=== PATIENT | male | born 1945 | race Caucasian/White ===

== ENCOUNTER → 2016-06-02 | Outpatient (CLI) | payer MEDICARE ==
--- NOTE | 2016-06-03 09:49 | XR ---
EXAMINATION TYPE: XR abdomen 2V DATE OF EXAM: 06/02/2016 12:52 PM COMPARISON: 12/01/2012 HISTORY: Nausea and generalized abdominal pain FINDINGS: The osseous structures are intact. The bowel gas pattern is nonspecific. Previous surgery seen in th e right upper quadrant. Hypertrophic and degenerative change of the spine noted. Diffuse osteopenia n oted. Arthropathy of the hip joints seen. IMPRESSION: 1. Nonspecific abdomen.
== END | disposition home or self-care (01) ==
LOC: RADXRYALE 11:52
PROVIDERS: ATTEND Physician Assistant Medical
DX: R10.84 Generalized abdominal pain (principal); R11.0 Nausea; Z90.49 Acquired absence of other specified parts of digestive tract
CPT/HCPCS: 74020

== ENCOUNTER → 2019-12-29 | Outpatient (CLI) | payer MEDICARE | END | disposition home or self-care (01) | LOC: RADMRIMAIN 17:39 | PROVIDERS: ATTEND Family Medicine | DX: Z53.9 Procedure and treatment not carried out, unspecified reason (principal) ==

== ENCOUNTER → 2020-03-06 | Outpatient (CLI) | payer MEDICARE ==
[~2020-03-06] MED LIST: IODINE/POTASS IOD (LUGOLS) BOTTLE TOPICAL ONE
--- NOTE | 2020-03-07 10:18 | NM ---
EXAMINATION TYPE: NM DatScan Brain SPECT DATE OF EXAM: 03/06/2020 COMPARISON: NONE HISTORY: Essential tremor TECHNIQUE: 10 drops of Lugol's solution was administered 1 hour prior to injection as a thyroid bloc francine agent. After the administration of 4.47 mCi I-123 Ioflupane DaTscan. Images obtained 3 hours p ost injection. SPECT images of the brain were acquired with axial and coronal reconstructions. FINDINGS: There is asymmetric uptake along the striata. Decreased uptake noted on the left as compared to the r ight. Uptake along the striata is not comma-shaped. IMPRESSION: Abnormal GUILLERMO scan
== END | disposition home or self-care (01) ==
LOC: RADNMMAIN 10:38
PROVIDERS: ATTEND Psychiatry & Neurology Neurology
DX: G25.0 Essential tremor (principal)
CPT/HCPCS: 78803; A9584

== ENCOUNTER → 2022-12-28 | Outpatient (CLI) | payer MEDICARE ==
--- NOTE | 2022-12-28 10:34 | US ---
EXAMINATION TYPE: US kidneys/renal and bladder DATE OF EXAM: 12/28/2022 COMPARISON: US 2012 CLINICAL INDICATION: Male, 77 years old with history of R79.9 ABNORMAL FINDING OF BLOOD CHEMISTRY, UN SPECI; Abnormal finding of blood chemistry EXAM MEASUREMENTS: Right Kidney: 10.7 x 5.8 x 5.9 cm Left Kidney: 11.3 x 5.4 x 5.7 cm Right Kidney: Anechoic area seen lower pole: 2.0 x 1.2 x 1.1 cm. Hyperechoic focus seen lower pole: 0.4 x 0.6 x 0.2 cm. Left Kidney: No hydronephrosis or masses seen Bladder: Anechoic Bilateral Jets seen: Yes IMPRESSION: 1. Small medullary cyst inferior pole right kidney. 2. Nonobstructing cortical renal calcification.
== END | disposition home or self-care (01) ==
LOC: RADUSWWP 09:07
PROVIDERS: ATTEND Family Medicine
DX: N28.89 Other specified disorders of kidney and ureter (principal); N28.1 Cyst of kidney, acquired; R79.9 Abnormal finding of blood chemistry, unspecified
CPT/HCPCS: 76770

== ENCOUNTER 2024-07-06 10:01 | Emergency (ER) | payer MEDICARE ==
--- NOTE | 2024-07-06 10:38 | ED ---
Weakness HPI - General Source: patient, family, RN notes reviewed Mode of arrival: wheelchair Limitations: no limitations <Stephy Coon - Last Filed: 07/06/24 10:37> - General Source: patient, family, RN notes reviewed Mode of arrival: wheelchair Limitations: no limitations <Ziggy Barahona - Last Filed: 07/06/24 13:13> - General Chief complaint: Weakness Stated complaint: fall,weakness Time Seen by Provider: 07/06/24 10:37 - History of Present Illness Initial comments: Quick note: 78-year-old male presented to the ER for evaluation of weakness. Son providing most of HPI. He reports patient has been extremely weak having difficulty with walking and standing. Son reports yesterday patient slipped out of bed. No head injury. He also reports bilateral lower extremity edema to the point where he cannot place patient's shoes. Patient denies any current pain. (Stephy Coon) Patient is an 78-year-old male present to the emergency department with concerns with generalized weakness. Onset of symptoms was yesterday. Patient did have a fall, sliding to the ground. No injury. Patient had another similar incident also no injury. Patient has minimal cough. No fever. No confusion. No history of similar symptoms previously. Patient in general feels generally w eak. Majority of history comes from son as he is a superior historian. Patient denies any significant complaints. Patient denies any injuries. (Ziggy Barahona) - Related Data Home Medications Medication Instructions Recorded Confirmed Albuterol Sulfate [Proair Hfa] 1 - 2 puff INHALATION BID 06/06/15 05/11/18 Aspirin [Adult Low Dose Aspirin EC] 81 mg PO DAILY 06/06/15 05/11/18 Atorvastatin [Lipitor] 10 mg PO Q48H 06/06/15 05/11/18 Multivitamins, Thera [Multivitamin] 1 tab PO DAILY 06/06/15 05/11/18 Budesonide-Formot 160-4.5 Mcg 1 puff INHALATION DAILY 05/11/18 05/11/18 [Symbicort 160-4.5 Mcg Inhaler] Vit D3/Folic Acid/B2/B6/B12 1 tab PO DAILY 05/11/18 05/11/18 [Folgard Tablet] Previous Rx's Medication Instructions Recorded Nirmatrelvir/Ritonavir [Paxlovid 3 each PO BID #30 each 07/06/24 300-100 mg Dose Pack] Allergies Allergy/AdvReac Type Severity Reaction Status Date / Time Sulfa (Sulfonamide Allergy red skin Verified 07/06/24 10:10 Antibiotics) all over Review of Systems ROS Other: All systems not noted in ROS Statement are negative. <Stephy Coon - Last Filed: 07/06/24 10:37> ROS Other: All systems not noted in ROS Statement are negative. Constitutional: Denies: fever, chills Eyes: Denies: eye pain Respiratory: Denies: dyspnea Cardiovascular: Denies: chest pain Gastrointestinal: Denies: abdominal pain Musculoskeletal: Denies: back pain Neurological: Reports: as per HPI. Denies: headache <Ziggy Barahona - Last Filed: 07/06/24 13:13> ROS Statement: Those systems with pertinent positive or pertinent negative responses have been documented in the HPI. Past Medical History Past Medical History: Asthma, Diabetes Mellitus, Hyperlipidemia, Osteoarthritis (OA) History of Any Multi-Drug Resistant Organisms: None Reported Past Surgical History: Cholecystectomy, Tonsillectomy Past Anesthesia/Blood Transfusion Reactions: Motion Sickness Past Psychological History: No Psychological Hx Reported Smoking Status: Former smoker Past Alcohol Use History: None Reported Past Drug Use History: None Reported - Past Family History Brother(s) Family Medical History: Cancer <Stephy Coon - Last Filed: 07/06/24 10:37> General Exam Limitations: no limitations <Stephy Coon - Last Filed: 07/06/24 10:37> Limitations: no limitations General appearance: alert, in no apparent distress Head exam: Present: atraumatic Eye exam: Present: normal appearance Neck exam: Present: normal inspection. Absent: tenderness Respiratory exam: Present: normal lung sounds bilaterally Cardiovascular Exam: Present: regular rate, normal rhythm GI/Abdominal exam: Present: soft. Absent: tenderness Extremities exam: Present: normal inspection, full ROM. Absent: tenderness Neurological exam: Present: alert, CN II-XII intact. Absent: motor sensory de ficit Psychiatric exam: Present: flat affect Skin exam: Present: normal color <Ziggy Barahona - Last Filed: 07/06/24 13:13> - General Exam Comments Initial Comments: Visual Physical Exam Vital signs reviewed General: Well-appearing, nontoxic, no acute distress. Head: Normocephalic, atraumatic Eyes: PERRLA, EOMI ENT: Airway patent Chest: Nonlabored breathing Skin: No visual rash, normal skin tone Neuro: Alert and oriented 3 Musculoskeletal: No gross abnormalities edema bilateral lower extremities (Stephy Coon) Course Vital Signs 07/06/24 10:07 Temperature 97.8 F Pulse Rate 62 Respiratory 18 Rate Blood Pressure 120/73 O2 Sat by Pulse 99 Oximetry Medical Decision Making <Stephy Coon - Last Filed: 07/06/24 10:37> - Lab Data Result diagrams: 07/06/24 10:22 07/06/24 10:22 <Ziggy Barahona - Last Filed: 07/06/24 13:13> - Medical Decision Making I performed the quick note portion of this chart. Electronically signed by Stephy Coon PA-C (Stephy Coon) Was pt. sent in by a medical professional or institution ([facility], [employer], urgent care, hospital, or penitentiary...) When possible be specific @ -No Did you speak to anyone other than the patient for history (EMS, parent, family, police, friend...)? What history was obtained from this source @ -Son provides majority of history as he is a who. Superior historian to the patient Did you review nursing and triage notes (agree or disagree)? Why? @ -I reviewed and agree with nursing and triage notes Were old charts reviewed (outside hosp., previous admission, EMS record, old EKG, old radiological studies, urgent care reports/EKG's, penitentiary records)? Report findings @ -No old charts were reviewed Differential Diagnosis (chest pain, altered mental status, abdominal pain women, abdominal pain men, vaginal bleeding, weakness, fever, dyspnea, syncope, headache, dizziness, GI bleed, back pain, seizure, CVA, palpatations, mental health, musculoskeletal)? @ -Differential Weakness: Hypoglycemia, shock, sepsis, hyponatremia, anemia, infection, FL, ETOH, adverse medicine reaction, overdose, stroke, this is not meant to be an all-inclusive list. EKG interpreted by me (3pts min.). @ -As above X-rays interpreted by me (1pt min.). @ -Chest x-ray shows no acute process CT interpreted by me (1pt min.). @ -None done U/S interpreted by me (1pt. min.). @ -None done What testing was considered but not performed or refused? (CT, X-rays, U/S, l abs)? Why? @ -None What meds were considered but not given or refused? Why? @ -None Did you discuss the management of the patient with other professionals (professionals i.e. Dr., PA, BARREL FINISHER, lab, RT, psych nurse, social services designee, computer repair instructor, teacher, correction officer reformatory, wrapper caser)? Give summary @ -No Was smoking cessation discussed for >3mins.? @ -No Was critical care preformed (if so, how long)? @ -No Were there social determinants of health that impacted care today? How? (Homelessness, low income, unemployed, alcoholism, drug addiction, transportation, low edu. Level, literacy, decrease access to med. care, alf, rehab)? @ -No Was there de-escalation of care discussed even if they declined (Discuss DNR or withdrawal of care, Hospice)? DNR status @ - What co-morbidities impacted this encounter? (DM, HTN, Smoking, COPD, CAD, Cancer, CVA, ARF, Chemo, Hep., AIDS, mental health diagnosis, sleep apnea, morbid obesity)? @ -History of Parkinson's Was patient admitted / discharged? Hospital course, mention meds given and route, prescriptions, significant lab abnormalities, going to OR and other pertinent info. @ -Patient presents with generalized weakness. Evaluation positive for COVID-19. Interactions reviewed, patient will be prescribed Paxlovid and discharged. Patient and family updated and comfortable with this. Undiagnosed new problem with uncertain prognosis? @ -No Drug Therapy requiring intensive monitoring for toxicity (Heparin, Nitro, Insulin, Cardizem)? @ -No Were any procedures done? @ -No Diagnosis/symptom? @ -COVID-19 infection Acute, or Chronic, or Acute on Chronic? @ -Acute Uncomplicated (without systemic symptoms) or Complicated (systemic symptoms)? @ -Default Side effects of treatment? @ -No Exacerbation, Progression, or Severe Exacerbation? @ -No Poses a threat to life or bodily function? How? (Chest pain, USA, FL, pneumonia, PE, COPD, DKA, ARF, appy, cholecystitis, CVA, Diverticulitis, Homicidal, Suicidal, threat to staff... and all critical care pts) @ -No (Ziggy Barahona) - Lab Data Lab Results 07/06/24 07/06/24 07/06/24 Range/Units 10:22 10:22 10:22 WBC 4.8 (3.8-10.6) k/uL RBC 4.45 (4.30-5.90) m/uL Hgb 13.1 (13.0-17.5) gm/dL Hct 41.0 (39.0-53.0) % MCV 92.1 (80.0-100.0) fL MCH 29.4 (25.0-35.0) pg MCHC 32.0 (31.0-37.0) g/dL RDW 13.6 (11.5-15.5) % Plt Count 117 L (150-450) k/uL MPV 7.6 Neutrophils % 66 % Lymphocytes % 18 % Monocytes % 12 % Eosinophils % 1 % Basophils % 0 % Neutrophils # 3.1 (1.3-7.7) k/uL Lymphocytes # 0.9 L (1.0-4.8) k/uL Monocytes # 0.6 (0-1.0) k/uL Eosinophils # 0.0 (0-0.7) k/uL Basophils # 0.0 (0-0.2) k/uL PT 11.1 (10.0-12.5) sec INR 1.0 (<1.2) APTT 24.2 (22.0-30.0) sec Sodium 135 L (137-145) mmol/L Potassium 4.3 (3.5-5.1) mmol/L Chloride 104 (98-107) mmol/L Carbon Dioxide 22 (22-30) mmol/L Anion Gap 9 mmol/L BUN 26 H (9-20) mg/dL Creatinine 0.87 (0.66-1.25) mg/dL Est GFR (CKD-EPI)AfAm >90 (>60 ml/min/1.73 sqM) Est GFR (CKD-EPI)NonAf 82 (>60 ml/min/1.73 sqM) Glucose 128 H (74-99) mg/dL Plasma Lactic Acid Rober (0.7-2.0) mmol/L Calcium 8.7 (8.4-10.2) mg/dL Magnesium 2.0 (1.6-2.3) mg/dL Total Bilirubin 1.0 (0.2-1.3) mg/dL AST 140 H (17-59) U/L ALT 10 (4-49) U/L Alkaline Phosphatase 48 (38-126) U/L Troponin I (0.000-0.034) ng/mL NT-Pro-B Natriuret Pep 129 pg/mL Total Protein 6.6 (6.3-8.2) g/dL Albumin 3.7 (3.5-5.0) g/dL Influenza Type A (PCR) (Not Detectd) Influenza Type B (PCR) (Not Detectd) RSV (PCR) (Not Detectd) SARS-CoV-2 (PCR) (Not Detectd) 07/06/24 07/06/24 07/06/24 Range/Units 10:22 10:22 11:35 WBC (3.8-10.6) k/uL RBC (4.30-5.90) m/uL Hgb (13.0-17.5) gm/dL Hct (39.0-53.0) % MCV (80.0-100.0) fL MCH (25.0-35.0) pg MCHC (31.0-37.0) g/dL RDW (11.5-15.5) % Plt Count (150-450) k/uL MPV Neutrophils % % Lymphocytes % % Monocytes % % Eosinophils % % Basophils % % Neutrophils # (1.3-7.7) k/uL Lymphocytes # (1.0-4.8) k/uL Monocytes # (0-1.0) k/uL Eosinophils # (0-0.7) k/uL Basophils # (0-0.2) k/uL PT (10.0-12.5) sec INR (<1.2) APTT (22.0-30.0) sec Sodium (137-145) mmol/L Potassium (3.5-5.1) mmol/L Chloride (98-107) mmol/L Carbon Dioxide (22-30) mmol/L Anion Gap mmol/L BUN (9-20) mg/dL Creatinine (0.66-1.25) mg/dL Est GFR (CKD-EPI)AfAm (>60 ml/min/1.73 sqM) Est GFR (CKD-EPI)NonAf (>60 ml/min/1.73 sqM) Glucose (74-99) mg/dL Plasma Lactic Acid Rober 1.1 (0.7-2.0) mmol/L Calcium (8.4-10.2) mg/dL Magnesium (1.6-2.3) mg/dL Total Bilirubin (0.2-1.3) mg/dL AST (17-59) U/L ALT (4-49) U/L Alkaline Phosphatase (38-126) U/L Troponin I <0.012 (0.000-0.034) ng/mL NT-Pro-B Natriuret Pep pg/mL Total Protein (6.3-8.2) g/dL Albumin (3.5-5.0) g/dL Influenza Type A (PCR) Not Detected (Not Detectd) Influenza Type B (PCR) Not Detected (Not Detectd) RSV (PCR) Not Detected (Not Detectd) SARS-CoV-2 (PCR) Detected A (Not Detectd) Disposition <Stephy Coon - Last Filed: 07/06/24 10:37> Is patient prescribed a controlled substance at d/c from ED?: No Time of Disposition: 13:12 <Ziggy Barahona - Last Filed: 07/06/24 13:13> Clinical Impression: COVID-19 Disposition: HOME SELF-CARE Condition: Stable Instructions (If sedation given, give patient instructions): COVID-19 (Coronavirus Disease 2019) (ED) Additional Instructions: Prescription sent to pharmacy. Please do follow-up with primary care physician in the next day or 2 for recheck. Return for increased weakness, difficulty breathing, not tolerating oral intake, worsening symptoms or other concerns. Prescriptions: Nirmatrelvir/Ritonavir [Paxlovid 300-100 mg Dose Pack] 3 each PO BID #30 each Referrals: Oc Mesa DO [Primary Care Provider] - 1-2 days
[2024-07-06 10:39] LABS: Basophils % (A) 0 %; Eosinophils % (A) 1 %; HGB 13.1 gm/dL (13.0-17.5); Lymphocytes # (A) 0.9 k/uL (1.0-4.8); Lymphocytes % (A) 18 %; MCH 29.4 pg (25.0-35.0); MCV 92.1 fL (80.0-100.0); Mean Platelet Volume 7.6; Monocytes # (A) 0.6 k/uL (0-1.0); Monocytes % (A) 12 %; Neutrophils # (A) 3.1 k/uL (1.3-7.7); Neutrophils % (A) 66 %; Platelet Count 117 k/uL (150-450); RBC 4.45 m/uL (4.30-5.90); RDW 13.6 % (11.5-15.5); WBC 4.8 k/uL (3.8-10.6)
[2024-07-06 10:53] LABS: ALT 10 U/L (4-49); African American GFR (CKD) >90 (>60 ml/min/1.73 sqM); Anion Gap 9 mmol/L; Blood Urea Nitrogen 26 mg/dL (9-20); Calcium 8.7 mg/dL (8.4-10.2); Carbon Dioxide 22 mmol/L (22-30); Chloride 104 mmol/L (98-107); Glucose 128 mg/dL (74-99); Non-African American GFR(CKD) 82 (>60 ml/min/1.73 sqM); Sodium 135 mmol/L (137-145)
[2024-07-06 10:56] LABS: AST 140 U/L (17-59); Albumin 3.7 g/dL (3.5-5.0); Alkaline Phosphatase 48 U/L (38-126); Potassium 4.3 mmol/L (3.5-5.1); Total Protein 6.6 g/dL (6.3-8.2)
--- NOTE | 2024-07-06 10:58 | XR ---
EXAMINATION TYPE: XR chest 2V DATE OF EXAM: 07/06/2024 10:52 AM COMPARISON: CT 2013 CLINICAL INDICATION: Male, 78 years old with history of Weakness, TECHNIQUE: Frontal and lateral views of the chest are obtained. FINDINGS: There is no focal air space opacity, pleural effusion, or pneumothorax seen. The cardiac silhouette size is within normal limits. Scoliotic curvature is present. IMPRESSION: No acute cardiopulmonary process. [facility], , 07/06/2024 10:55 AM
[2024-07-06 11:01] LABS: NT-Pro-B-Type Natriuretic Pept 129 pg/mL
[2024-07-06 11:02] LABS: Partial Thromboplastin Time 24.2 sec (22.0-30.0); Prothrombin Time 11.1 sec (10.0-12.5)
[2024-07-06 12:20] LABS: Influenza A Not Detected (Not Detectd); Influenza B Not Detected (Not Detectd); RSV Not Detected (Not Detectd)
[2024-07-06 13:30] VITALS: RESP 16
[2024-07-06 13:32] VITALS: BP 146/70; PULSE 65; TEMP 98.8
== END 2024-07-06 13:30 | disposition home or self-care (01) ==
LOC: EC 10:01
DX: U07.1 COVID-19 (principal); Z86.69 Personal history of other diseases of the nervous system and sense organs; Z87.891 Personal history of nicotine dependence; Z88.2 Allergy status to sulfonamides; W06.XXXA Fall from bed, initial encounter
CPT/HCPCS: 36415; 71046; 80053; 83605; 83735; 83880; 84484; 85025; 85610; 85730; 87636; 93005; 99285

== ENCOUNTER → 2024-08-29 | Outpatient (CLI) | payer MEDICARE ==
--- NOTE | 2024-08-30 11:23 | CA ---
Transthoracic Echo Report Name: Scott Ellis Age: 78 Gender: M : 1945 Exam Date: 08/29/2024 14:06 Exam Location: [place] [facility] Ht (in): 70 Wt (lb): 195 Ordering Physician: Oc Mesa DO Attending/Referring Phys: Warping Machine Operator Michelle Tomlinson RDCS Procedure CPT: Indications: R60.9 DIASTOLIC CONGESTIVE HEART R60.9 EDEMA Cardiac Hx: Technical Quality: Good Contrast 1: Total Dose (mL): Contrast 2: Total Dose (mL): MEASUREMENTS (Male / Female) Normal Values 2D ECHO LV Diastolic Diameter PLAX 5.1 cm 4.2 - 5.9 / 3.9 - 5.3 cm LV Systolic Diameter PLAX 3.2 cm IVS Diastolic Thickness 1.2 cm 0.6 - 1.0 / 0.6 - 0.9 cm LVPW Diastolic Thickness 1.2 cm 0.6 - 1.0 / 0.6 - 0.9 cm LV Relative Wall Thickness 0.5 RV Internal Dim ED PLAX 3.7 cm LA Systolic Diameter LX 4.1 cm 3.0 - 4.0 / 2.7 - 3.8 cm LV Diastolic Volume MOD BP 103.4 cm??? 67 - 155 / 56 - 104 cm??? LV Systolic Volume MOD BP 40.8 cm??? - 58 / 19 - 49 cm??? LV Ejection Fraction MOD BP 60.6 % >= 55 % LV Cardiac Index MOD BP 2110.4 cm???/min???m??? LV Diastolic Volume MOD 4C 117.4 cm??? LV Systolic Volume MOD 4C 47.3 cm??? LV Ejection Fraction MOD 4C 59.7 % LV Cardiac Index MOD 4C 2362.2 cm???/min???m??? LV Diastolic Length 4C 7.6 cm LV Systolic Length 4C 6.7 cm LV Diastolic Volume MOD 2C 92.5 cm??? LV Systolic Volume MOD 2C 31.3 cm??? LV Ejection Fraction MOD 2C 66.1 % LV Cardiac Index MOD 2C 2061.5 cm???/min???m??? LV Diastolic Length 2C 7.6 cm LV Systolic Length 2C 5.8 cm LA Volume 78.6 cm??? - 58 / 22 - 52 cm??? LA Volume Index 37.3 cm???/m??? 16 - 28 cm???/m??? M-MODE Aortic Root Diameter MM 3.1 cm AV Cusp Separation MM 2.1 cm DOPPLER AV Peak Velocity 150.9 cm/s AV Peak Gradient 9.1 mmHg AI Peak Velocity 369.3 cm/s AI Peak Gradient 54.6 mmHg AI Pressure Half Time 982.2 ms MV Area PHT 3.6 cm??? Mitral E Point Velocity 75.6 cm/s Mitral A Point Velocity 70.2 cm/s Mitral E to A Ratio 1.1 MV Deceleration Time 212.9 ms TR Peak Velocity 260.4 cm/s TR Peak Gradient 27.1 mmHg Right Ventricular Systolic Press 32.1 mmHg FINDINGS Left Ventricle Left ventricular ejection fraction is estimated at 55-60 %. Left ventricular cavity size normal. Normal left ventricular systolic function with no obvious regional wall motion abnormalities. Mildly increased left ventricular wall thickness. Right Ventricle Mild right ventricular dilatation. Right ventricular systolic pressure within normal limits. Right Atrium Normal right atrial size. No right atrial thrombus or mass seen. Left Atrium Mildly increased left atrial diameter. Moderately increased left atrial volume. Mildly increased left atrial area. Mitral Valve Structurally normal mitral valve. Mitral annular calcification. mild mitral regurgitation. Aortic Valve Trileaflet aortic valve. Thickened aortic valve without stenosis. Mild aortic regurgitation.aortic valve sclerosis. Tricuspid Valve Structurally normal tricuspid valve. Mild tricuspid regurgitation. Pulmonic Valve Structurally normal pulmonic valve. Trace to mild pulmonic regurgitation. Pericardium No pericardial effusion. Aorta Normal size aortic root and proximal ascending aorta. CONCLUSIONS 1. Normal left ventricular size and systolic function 2. Mild mitral, aortic and tricuspid regurgitation with no evidence of pulmonary hypertension Previewed by: Dr. Dian Lemus MD (Electronically Signed) Final Date: 30 August 2024 11:22
== END | disposition home or self-care (01) ==
LOC: RADECHMAIN 13:49
PROVIDERS: ATTEND Family Medicine
DX: I08.3 Combined rheumatic disorders of mitral, aortic and tricuspid valves (principal); I50.30 Unspecified diastolic (congestive) heart failure; R60.0 Localized edema
CPT/HCPCS: 93306